=== PATIENT | male | born 1950 | race Caucasian/White ===

== ENCOUNTER 2022-10-04 10:52 | Day surgery (SDC) | payer MEDICARE ==
[~2022-10-04 10:52] MED LIST: ALPRAZolam 0.25 MG TAB PO PRN; ALPRAZolam 0.5 MG TAB PO PRN; ASPIRIN 325 MG TAB PO STA; ATORVASTATIN 80 MG TAB PO STA; HEPARIN SODIUM,PORCINE (1 ML) 2,500 UNIT in SODIUM CHLORIDE 0.9% 250 ML IRRIGATION PRN; HEPARIN SODIUM,PORCINE 10,000 UNIT in SODIUM CHLORIDE 0.9% 1,000 ML IRRIGATION PRN; NITROGLYCERIN SL TABS 0.4 MG TAB SUBLINGUAL PRN; SODIUM CHLORIDE 0.9% 1,000 ML in EMPTY BAG 1 BAG IV SCH
[2022-10-04 11:19] VITALS: RESP 18; TEMP 99.2
[2022-10-04] MEDS ORDERED: fentaNYL (PF) 50 MCG/ML 2 ML AMP IVP ONE (11:52)
[2022-10-04] MEDS: MIDAZOLAM 2 MG/2 ML VIAL IVP ONE ×2 (11:52→11:58)
[2022-10-04] MEDS ORDERED: LIDOCAINE 1% INJ 10MG/ML (20 ML MDV) SQ ONE (11:57)
[2022-10-04] MEDS ORDERED: HEPARIN SODIUM 1,000 UN/ML (10ML VL) IVP ONE (12:07)
[2022-10-04] MEDS ORDERED: IOPAMIDOL-370 100ML BTL INJ ONE (12:28)
[2022-10-04] MEDS ORDERED: RX INFO: IV CONTRAST WAS GIVEN 1 EACH MISC MISCELLANE PRN (12:48)
--- NOTE | 2022-10-04 12:48 | P.CARDCATH ---
Date of Procedure: 10/04/22 Description of Procedure: DIAGNOSTIC CORONARY ANGIOGRAPHY and LEFT HEART CATH REPORT PROCEDURES PERFORMED: Left heart catheterization Selective coronary angiography Moderate conscious sedation [22] mins Right radial access INDICATION: Positive exercise stress test Patient is a 72-year-old male who saw Dr. ruano for PVCs. For this he underwent a stress test which was positive for ischemia in inferior wall. He was scheduled for an outpatient cardiac catheterization for this positive stress test CONSENT: I have discussed the risks, benefits and alternative therapies for the above-mentioned procedure, sedation/analgesia and necessary blood product administration (if indicated, as they pertain to this patient). The patient has indicated understanding and acceptance of the risks and procedures discussed. Conscious Sedation: Patient's ECG, heart rate, blood pressure, pulse oximetry was monitored throughout the duration of procedure under the direct supervision. [2] mg Versed and [50] mg Fentanyl were used for induction of moderate conscious sedation. Total duration of [25] minutes. PROCEDURE:After the risks, benefits and alternatives of the above mentioned procedure explained in detail with the patient, informed consent was obtained. Patient was taken to the catheterization lab and prepped and draped in usual sterile fashion. 1% lidocaine was infiltrated over the right radial artery. A 6-[place]istani sheath was placed in the right radial artery using modified Seldinger technique. The sheath was flushed 5 mg verapamil was administered intra- arterially. J tipped wire was advanced under fluoroscopic guidance. Once the wire tip reached aortic root [5000] units of IV heparin was given. Over the wire JL3.5 diagnostic catheter was advanced. Wire was removed, catheter was flushed and manipulated under fluoroscopy to selectively engaged the left coronary ostium. Left coronary angioplasty was performed in different angiographic projections. This catheter was exchanged for a JR4 diagnostic catheter over the wire. The catheter was flushed and manipulated to cross the aortic valve. LV pressures were obtained. Pullback was performed across aortic valve and catheter was manipulated to selectively engage the right coronary ostium under fluoroscopic guidance. Right coronary angiography was performed in different angiographic projections. Catheter was removed over the wire. Radial sheath was flushed. The right radial sheath was removed and a TR band was placed with excellent patent hemostasis was achieved. The patient tolerated the procedure well. Patient was transported back to the post catheterization holding area in stable condition. Angiographic images were reviewed in detail. HEMODYNAMICS: Aortic Pressure: 127/50 mmHg. LV pressure: 127/1 mmHg. LVEDP 12 mmHg. SELECTIVE CORONARY ARTERIOGRAPHY: LEFT MAIN: The left main is a large caliber vessel which bifurcates into the LAD and circumflex. There is no significant stenosis. LEFT ANTERIOR DESCENDING CORONARY ARTERY: LAD is a large caliber vessel which wraps around to the apex. There is no significant stenosis. It gives medium- sized diagonal 1, large size diagonal 2 when the small size diagonal 3. These vessels appears angina 15 normal. LEFT CIRCUMFLEX CORONARY ARTERY: It is nondominant vessel. Left circumflex is a large caliber vessel without significant stenosis. It gives rise to large size OM 3 and OM4 which appears angiographically normal. OM1 and OM 2 are small vessels which appears angiographically normal RIGHT CORONARY ARTERY: Dominant vessel. The right coronary artery is a large caliber vessel which gives off a PDA and PLV branch. It has minimal luminal irregularities. PDA and PL branches are small caliber vessel which appears angiographically normal. IMPRESSION: Minimal luminal irregularities, but otherwise Angiographically normal coronary arteries. Normal left sided filling pressures PLAN: Continue statin 150 cc fluids for 3 hours Discharge home in 3 hours Follow-up in the office with Dr Ruano. Performing Physician Claude Saunders MD
[2022-10-04] MEDS ORDERED: SODIUM CHLORIDE 0.9% 1,000 ML IV SCH (13:00)
[2022-10-04 15:27] VITALS: BP 136/65; PULSE 55
== END 2022-10-04 15:39 | disposition home or self-care (01) ==
LOC: CATHCVL 10:52
PROVIDERS: ATTEND Student in an Organized Health Care Education/Training Program
DX: I47.29 Other ventricular tachycardia (principal); I99.8 Other disorder of circulatory system; E78.5 Hyperlipidemia, unspecified; F17.210 Nicotine dependence, cigarettes, uncomplicated; Z82.49 Family history of ischemic heart disease and other diseases of the circulatory system; Z79.899 Other long term (current) drug therapy
CPT/HCPCS: 93458; J2250; J2001; J3010; J1644; Q9967